=== PATIENT | male | born 1960 | race Caucasian/White ===

== ENCOUNTER 2018-05-21 20:52 | Emergency (ER) | payer OTHER ==
[~2018-05-21] VITALS: Ht 172.7 cm; Wt 94.8 kg
[2018-05-21 21:07] VITALS: Ht 172.7 cm; Wt 94.8 kg
[2018-05-21 22:39] VITALS: BP 145/99
== END 2018-05-21 22:40 | disposition home or self-care (01) ==
LOC: ED 20:52
DX: S61.412A Laceration without foreign body of left hand, initial encounter (principal); X58.XXXA Exposure to other specified factors, initial encounter; Y93.01 Activity, walking, marching and hiking; Y92.89 Other specified places as the place of occurrence of the external cause; Y99.8 Other external cause status
CPT/HCPCS: 90715; J2001

== ENCOUNTER 2019-10-26 15:24 | Emergency (ER) | payer BC ==
[~2019-10-26] VITALS: Ht 177.8 cm; Wt 94.3 kg
[2019-10-26 15:38] VITALS: Ht 177.8 cm; Wt 94.3 kg
[2019-10-26 16:50] VITALS: BP 155/97
== END 2019-10-26 16:50 | disposition home or self-care (01) ==
LOC: ED 15:24
DX: M19.071 Primary osteoarthritis, right ankle and foot (principal)
CPT/HCPCS: Q0092